=== PATIENT | male | born 1990 | race Two or more races ===

== ENCOUNTER 2023-10-03 11:17 | Emergency (ER) | payer SELFPAY ==
--- NOTE | ~2023-10-03 | CT_ITS ---
EXAMINATION: CT abdomen pelvis w con DATE: 10/03/2023 14:15 INDICATION: Generalized abdominal pain TECHNIQUE: Computed tomography (CT) of the abdomen and pelvis was performed with 100 mL Omnipaque-350 intravenous contrast. Automated exposure control and iterative reconstruction technique were employe d. The dose-length product was 576.60 mGy-cm. COMPARISON: None FINDINGS: Lung bases are clear. Heart size is normal. No pericardial or pleural effusion. Liver, gallbladder, s pleen, pancreas, bilateral adrenal glands and left kidney are normal. 1.6 cm right renal cyst. No bow el obstruction. Normal appendix. Bladder is normal. No free intraperitoneal gas or fluid. No patholog ically enlarged abdominal or pelvic lymphadenopathy. Chronic appearing mild anterior wedging of a few lower thoracic vertebral bodies with moderate lower cervical spondylosis. Mild lumbar spondylosis. IMPRESSION: 1. No acute intra-abdominal/pelvic process. Reviewed, dictated and finalized at location A.
[2023-10-03 11:19] VITALS: BP 140/85; PULSE 67; RESP 18; TEMP 36.6; O2SAT 100
--- NOTE | 2023-10-03 13:09 | ED.ABDPAIN ---
HPI - Abdominal Pain General Chief Complaint: Abdominal Pain Stated Complaint: upper abd pain Time Seen by Provider: 10/03/23 13:04 Source: patient Mode of arrival: ambulatory Limitations: no limitations History of Present Illness HPI narrative: 33 YEARS OLD MALE CAME TO THE EMERGENCY ROOM WITH INTERMITTENT EPIGASTRIC PAIN, SHARP, SPASM, NO RADIATION STARTED 4 DAYS AGO. WORSE WITH EATING A LOT, BETTER IF HE DOES NOT EAT. HE DENIES ANY FEVER OR CHILLS OR NAUSEA OR VOMITING OR HISTORY OF ABDOMINAL SURGERY. PATIENT DOES NOT SMOKE OR DRINK OR USES DRUGS Related Data Allergies Allergy/AdvReac Type Severity Reaction Status Date / Time No Known Allergies Allergy Verified 10/03/23 14:16 Review of Systems Review of Systems: All systems reviewed & are unremarkable except as noted in HPI and below Exam Narrative: GENERAL APPEARANCE: WELL-DEVELOPED, WELL-NOURISHED SKIN: NORMAL COLOR HEAD: NORMOCEPHALIC, NONTRAUMATIC EYES: CLEAR CONJUNCTIVA ENT: OROPHARYNX NORMAL, EARS NORMAL, NOSE NORMAL NECK: SUPPLE, NONTENDER CHEST AND RESPIRATORY: AIRWAY PATENT, NO RESPIRATORY DISTRESS, NO ACCESSORY MUSCLE USE HEART: REGULAR RATE/RHYTHM ABDOMEN: SOFT, MILD EPIGASTRIC TENDERNESS, NO GUARDING OR REBOUND , NO ORGANOMEGALY, QUIET BOWEL SOUNDS VASCULAR: NORMAL PERIPHERAL PULSES, NORMAL CAPILLARY REFILL. 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, NO GROSS MOTOR DEFICIT Course Vital Signs Vital signs: Vital Signs Temperature 36.6 C 10/03/23 11:19 Pulse Rate 67 10/03/23 11:19 Respiratory Rate 18 10/03/23 11:19 Blood Pressure 140/85 10/03/23 11:19 Pulse Oximetry 100 10/03/23 11:19 Oxygen Delivery Room Air 10/03/23 11:19 Temperature 36.6 C 10/03/23 11:19 Pulse Rate 74 10/03/23 14:55 Respiratory Rate 16 10/03/23 14:55 Blood Pressure 132/94 H 10/03/23 14:55 Pulse Oximetry 100 10/03/23 14:55 Oxygen Delivery Room Air 10/03/23 11:19 MDM - Abdominal Pain MDM Narrative Medical decision making narrative: PATIENT PRESENTS WITH INTERMITTENT EPIGASTRIC PAIN VITAL SIGNS ON ARRIVAL SHOWED NO ACUTE ABNORMALITY PHYSICAL EXAMINATION SHOWED MILD EPIGASTRIC TENDERNESS DIFFERENTIAL DIAGNOSIS INCLUDE GASTRITIS, ESOPHAGITIS, GERD, CHOLECYSTITIS, CONSTIPATION, COLITIS BLOOD WORKUP TODAY SHOWED NO SIGNIFICANT ABNORMALITIES, URINALYSIS SHOWED NO EVIDENCE OF INFECTION, CT ABDOMEN AND PELVIS WITH IV CONTRAST SHOWED NO ACUTE ABNORMALITIES Differential Diagnosis Differential diagnosis: Likely other ( ABOVE) Medical Records Attestation: I reviewed the patient's medical records. Lab Data Attestation: I reviewed the patient's lab results. 10/03/23 14:04 10/03/23 14:11 Labs: Lab Results 10/03/23 10/03/23 10/03/23 Range/Units 14:04 14:11 14:22 WBC 5.3 (4.5-10.0) K/mm3 RBC 6.32 H (4.6-6.20) M/mm3 Hgb 17.8 (14.0-18.0) g/dL Hct 53.7 H (42.0-52.0) % MCV 85.0 (80-100) fl MCH 28.2 (26-34) pg MCHC 33.1 (32-36) g/dl RDW 13.2 (11.5-14.5) % Plt Count 245 (150-375) k/mm3 MPV 9.8 (7.4-10.4) fl Immature Gran % (Auto) 0.6 H (0-0.5) % Neut % (Auto) 58.4 (45.5-73.1) % Lymph % (Auto) 30.6 (18.3-44.2) % [place] % (Auto) 9.2 H (2.6-8.5) % Eos % (Auto) 0.8 (0-4.4) % Baso % (Auto) 0.4 (0.2-1.2) % Lymph # (Auto) 1.62 (0.9-3.2) K/mm3 [place] # (Auto) 0.5 (0.1-0.6) K/mm3 Eos # (Auto) 0.0 (0-0.3) K/mm3 Baso # (Auto) 0.0 (0.0-0.1) K/mm3 Abs Immat Gran (auto) 0.03 (0.00-0.031) K/mm3 Absolute Neuts (auto) 3.1 (1.3-6.7) K/mm3 Absolu
[2023-10-03 14:16] LABS: Estimated CRCL calculation 116 ml/min; Estimated Glomerular Filt Rate > 60
[2023-10-03] MEDS: SODIUM CHLORIDE 0.9% IV 1,000 ML 999 ML IV CONT (14:17)
[2023-10-03] MEDS: ONDANSETRON INJ 4 MG/2 ML VIAL IV PUSH (14:18)
[2023-10-03] MEDS: HYDROmorphone HCL INJ (*CRX) 1 MG/ML SYR 0.5 MG IV PUSH (14:18)
[2023-10-03 14:23] LABS: Basophils Percent Auto 0.4 % (0.2-1.2); Eosinophils Percent Auto 0.8 % (0-4.4); Hematocrit 53.7 % (42.0-52.0); Hemoglobin 17.8 g/dL (14.0-18.0); Immature Granulocyte Absolute 0.03 K/mm3 (0.00-0.031); Immature Granulocyte Percent A 0.6 % (0-0.5); Lymphocytes Absolute Auto 1.62 K/mm3 (0.9-3.2); Lymphocytes Percent Auto 30.6 % (18.3-44.2); Mean Corpuscular HGB Conc 33.1 g/dl (32-36); Mean Corpuscular Hemoglobin 28.2 pg (26-34); Mean Platelet Volume 9.8 fl (7.4-10.4); Monocytes Absolute Auto 0.5 K/mm3 (0.1-0.6); Monocytes Percent Auto 9.2 % (2.6-8.5); Neutrophils Absolute Auto 3.1 K/mm3 (1.3-6.7); Neutrophils Percent Auto 58.4 % (45.5-73.1); Platelet Count Result 245 k/mm3 (150-375); Red Blood Count 6.32 M/mm3 (4.6-6.20); Red Cell Distribution Width 13.2 % (11.5-14.5); White Blood Count 5.3 K/mm3 (4.5-10.0)
[2023-10-03 14:32] LABS: Alanine Aminotransferase 19 U/L (6-50); Albumin Level 4.4 g/dL (3.5-5.1); Alkaline Phosphatase 60 U/L (38-126); Anion Gap 11 mmol/L (4-12); Aspartate Amino Transferase 21 U/L (17-59); Bilirubin,Total 0.5 mg/dL (0.2-1.3); Blood Urea Nitrogen 10 mg/dL (9-20); Calcium 9.3 mg/dL (8.4-10.2); Carbon Dioxide 26 mmol/L (22-30); Chloride 101 mmol/L (98-107); Estimated CRCL calculation 116 ml/min; Estimated Glomerular Filt Rate > 60; Glucose 100 mg/dL (65-110); Lipase 68 U/L (23-300); Sodium 138 mmol/L (137-145)
[2023-10-03 14:42] LABS: Add Urine Microscopic? YES; Appearance Urine Turbid (Clear); Bacteria Urine None Seen /hpf; Bilirubin Urine Negative (Negative); Blood Urine Negative (Negative); Color Urine Yellow (Yellow); Glucose Urine UA Negative (Negative); Ketones Urine Negative (Negative); Leukocyte Esterase Ur Negative LEU/UL (Negative); Nitrate Urine Negative (Negative); Non Pathogenic Casts 0-2; Protein Urine Negative (Negative); RBC Urine 0-2 /hpf (0-2); Specific Grav Ur 1.034 (1.001-1.035); Squamous Epithelial Cell Urine None Seen /hpf (Few); Urobilinogen Urine 0.2 mg/dL (<2.0); WBC Urine 0-5 /hpf (0-3); pH Urine 7.5 (5.0-9.0)
[2023-10-03 14:55] VITALS: BP 132/94; PULSE 74; RESP 16; O2SAT 100
== END 2023-10-03 15:17 | disposition home or self-care (01) ==
PROVIDERS: Emergency Provider Emergency Medicine
DX: R10.13 Epigastric pain (principal)
CPT/HCPCS: 36415; 74177; 80053; 81001; 83690; 85025; 96361; 96374; 96375; 99284; J1170; J2405; J7030; Q9967

== ENCOUNTER 2024-03-05 08:55 | Emergency (ER) | payer SELFPAY ==
--- NOTE | ~2024-03-05 | XR_ITS ---
EXAMINATION: XR ribs RT 2V w CXR 2V DATE: 03/05/2024 10:08 INDICATION: Right rib pain. TECHNIQUE: Frontal and lateral views of the chest and 2 views on 3 radiographs of the right ribs were obtained. COMPARISON: CT abdomen and pelvis 10/03/2023 FINDINGS: CHEST TWO VIEWS: There is mild atelectasis at the lung bases. No pleural effusion or pneumothorax. Th e heart size is normal. There is mild chronic anterior wedging of multiple vertebral bodies. RIGHT RIBS: There is no rib fracture. IMPRESSION: 1. No rib fracture. Reviewed, dictated and finalized at location A. NESS EXCELLENCE LEADER IMPRESSION: 1. No rib fracture.
--- NOTE | ~2024-03-05 | XR_ITS ---
EXAMINATION: XR_[id number]_CR DATE: 03/05/2024 10:08 INDICATION: Right neck pain. TECHNIQUE: 4 views of cervical spine were obtained. COMPARISON: None. FINDINGS: Alignment is normal. Vertebral body heights and intervertebral disc heights are normal. The re is multilevel mild facet joint osteoarthritis. No central canal stenosis or prevertebral soft tiss ue swelling. IMPRESSION: 1. Mild cervical facet joint osteoarthritis. Reviewed, dictated and finalized at location A. SPECIALIST
[2024-03-05 09:03] VITALS: BP 151/78; PULSE 92; RESP 16; TEMP 36.8; O2SAT 99
--- NOTE | 2024-03-05 09:49 | ED_ITS ---
HPI - General Adult General Chief complaint: Unspecified Stated complaint: neck and shoulder pain Time Seen by Provider: 03/05/24 09:14 Source: patient Mode of arrival: ambulatory Limitations: no limitations History of Present Illness HPI narrative: This is a 33-year-old male that presents to the emergency department for right- sided neck pain. Reports he did a shoulder work out 2 days ago. Since he has been experiencing right-sided neck pain radiating into the shoulder. Also endorses right-sided rib pain. Pain is worse with palpation of the area, certain movements and breathing. He has taken Excedrin for pain with little low relief. Denies numbness or weakness. Related Data Allergies Allergy/AdvReac Type Severity Reaction Status Date / Time No Known Allergies Allergy Verified 03/05/24 10:17 Review of Systems Review of Systems: CONSTITUTIONAL: Denies fever SKIN: Denies rash MUSCULOSKELETAL: Reports back pain, joint pain, and myalgia. NEUROLOGIC: Denies numbness, or weakness. All systems reviewed & are unremarkable except as noted in HPI and below PMFSH Past Medical History Medical History (Updated 03/05/24 @ 10:54 by Isadora De Souza PA-C) No active medical problems Social History Social History (Updated 03/05/24 @ 09:51 by Isadora De Souza PA-C) Smoking status: Never smoker Exam Narrative: GENERAL: Well-appearing, well-nourished, and in no acute distress. HEAD: Normocephalic, atraumatic. EYES: EOMI. NECK: Supple. No adenopathy or masses. Tender to palpation of right trapezius musculature CHEST: Clear to auscultation. No respiratory distress. No wheezes rales or rhonchi. Tender to palpation of right chest wall HEART: Regular rate and rhythm. No murmur heard. Normal peripheral pulses. EXTREMITIES: Normal range of motion. No edema. SKIN: Warm, dry, no rash. NEURO: No focal deficits. Alert and oriented x3. Normal gait PSYCH: Normal mood and affect Course Course Emergency Course: Patient updated on workup and agrees with plan of care Vital Signs Vital signs: Vital Signs Temperature 98.3 F 03/05/24 09:03 Pulse Rate 92 03/05/24 09:03 Respiratory Rate 16 03/05/24 09:03 Blood Pressure 151/78 H 03/05/24 09:03 Pulse Oximetry 99 03/05/24 09:03 Oxygen Delivery Room Air 03/05/24 09:03 Temperature 98.3 F 03/05/24 09:03 Pulse Rate 92 03/05/24 09:03 Respiratory Rate 16 03/05/24 09:03 Blood Pressure 151/78 H 03/05/24 09:03 Pulse Oximetry 99 03/05/24 09:03 Oxygen Delivery Room Air 03/05/24 09:03 Medical Decision Making MDM Narrative Medical decision making narrative: Patient presents to the emergency department for right-sided neck pain, right chest wall pain after a workout 2 days ago. He is neurovascularly intact. Cervical spine x-ray shows mild osteoarthritis. Right rib/chest x-rays without acute cardiopulmonary or osseous abnormality. Patient updated on his workup and agrees with plan of care. Instructed on further care of muscle strain. He is to follow up with primary provider. He was given warnings to return to the ER Vital Signs Vital Signs: Vital Signs Temperature 98.3 F 03/05/24 09:03 Pulse Rate 92 03/05/24 09:03 Respiratory Rate 16 03/05/24 09:03 Blood Pressure 151/78 H 03/05/24 09:03 Pulse Oximetry 99 03/05/24 09:03 Oxygen Delivery Room Air 03/05/24 09:03 Temperature 98.3 F 03/05/24 09:03 Pulse Rate 92 03/05/24 09:03 Respiratory Rate 16 03/05/24 09:03 Blood Pressure 151/78 H 03/05/24 09:03 Pulse Oximetry 99 03/05/24 09:03 Oxygen Delivery Room Air 03/05/24 09:03 Imaging Data Radiologist's impression: ITS Impressions Cervical Spine X-Ray 03/05/24 10:10 IMPRESSION: 1. Mild cervical facet joint osteoarthritis. Ribs w/Chest X-Ray 03/05/24 10:11 IMPRESSION: 1. No rib fracture. Critical Care Time Critical Care Time Critical Care Time: No Discharge Plan Discharge Clinical Impression: Muscle strain of chest wall, Acute cervical myofascial strain Patient Disposition: Home, Self-Care Condition: Stable Instructions: Muscle Strain (ED) Additional Instructions: Return to the ER if you experience shortness of breath, weakness, numbness, or any other symptoms that are concerning to you Rest, use ice/heat, take anti-inflammatories (Aleve, Ibuprofen, Naproxen, etc) or Tylenol as needed for pain as well as muscle relaxer (Flexeril) as needed for pain. Muscle relaxers can make you drowsy, do not drive if you take this Follow up with your primary care doctor Patient Language: [place] Prescriptions: New cyclobenzaprine 10 mg tablet 10 mg PO TID PRN (Reason: muscle spasm) Qty: 14 0RF No Action pantoprazole [Protonix] 40 mg tablet,delayed release (DR/EC) 40 mg PO QAM 30 Days Qty: 30 0RF Follow-up/Referrals: Matthew Bronson MD [Physician] - UNKNOWN,DOCTOR [Primary Care Provider] -
[2024-03-05] MEDS: ACETAMINOPHEN 325 MG TABLET 650 MG PO (10:15)
[2024-03-05] MEDS: KETOROLAC 30 MG/ML VIAL (*BKC) IM (10:16)
== END 2024-03-05 11:30 | disposition home or self-care (01) ==
PROVIDERS: Emergency Provider Physician Assistant
DX: S29.011A Strain of muscle and tendon of front wall of thorax, initial encounter (principal); S16.1XXA Strain of muscle, fascia and tendon at neck level, initial encounter; X50.0XXA Overexertion from strenuous movement or load, initial encounter
CPT/HCPCS: 71046; 71100; 72040; 96372; 99284; A9270; J1885